=== PATIENT | male | born 1945 | race Caucasian/White ===

== ENCOUNTER 2024-05-16 20:38 | Emergency (ER) | payer OTHER, BC ==
[2024-05-16 20:56] VITALS: BP 147/73; PULSE 63; RESP 16; TEMP 98.4; BMI 24.8
[2024-05-16] MEDS ORDERED: CLINDAMYCIN HCL 150 MG CAPSULE (FP) ONE (21:51)
[2024-05-16] MEDS: CLINDAMYCIN HCL 150 MG CAPSULE (FP) PO ONE (21:53)
== END 2024-05-16 21:57 | disposition home or self-care (01) ==
LOC: FER 20:38
PROC: 0HQEXZZ Repair Left Lower Arm Skin, External Approach (ICD-10-PCS; principal; 2024-05-16)
DX: S51.012A Laceration without foreign body of left elbow, initial encounter (principal); W06.XXXA Fall from bed, initial encounter
CPT/HCPCS: 99283-25

== ENCOUNTER 2024-05-25 16:58 | Emergency (ER) | payer OTHER, BC ==
[2024-05-25 17:09] VITALS: BP 158/85; PULSE 65; RESP 16; TEMP 98.4; BMI 24.1
== END 2024-05-25 17:47 | disposition home or self-care (01) ==
LOC: FER 16:58
DX: Z48.02 Encounter for removal of sutures (principal)
CPT/HCPCS: 99281-25

== ENCOUNTER 2024-06-02 09:51 | Emergency (ER) | payer OTHER, BC ==
[2024-06-02 10:09] VITALS: BP 152/72; PULSE 56; RESP 18; TEMP 97.7; BMI 24.7
== END 2024-06-02 13:20 | disposition home or self-care (01) ==
LOC: FER 09:51
DX: S51.012D Laceration without foreign body of left elbow, subsequent encounter (principal); M01.X22 Direct infection of left elbow in infectious and parasitic diseases classified elsewhere; X58.XXXD Exposure to other specified factors, subsequent encounter
CPT/HCPCS: 73070-TC-LT-FY; 87070; 87186; 87205; 99283-25